=== PATIENT | female | born 1990 | race Two or more races ===

== ENCOUNTER 2023-10-04 15:17 | Outpatient (OUT) | payer OTHER, SELFPAY ==
[2023-10-04 16:04] LABS: HCG Quantitative <1 mIU/mL
== END 2023-10-04 15:18 | disposition home or self-care (01) ==
LOC: LAB 15:21
PROVIDERS: PCP Student in an Organized Health Care Education/Training Program; Visit Provider Obstetrics & Gynecology
DX: O20.9 Hemorrhage in early pregnancy, unspecified (principal)
CPT/HCPCS: 36415; 84702

== ENCOUNTER 2023-10-06 09:31 | Outpatient (OUT) | payer OTHER, SELFPAY ==
--- OUTSIDE RECORDS SUMMARY | 2023-10-06 09:53 | XMS_ITS | CCD ---
Author Organization [facility] ion Partnership [facility] Care Team Providers Care Caul Fat Puller Name Role Phone VENT, CHEVONE R. Unavailable Unavailable NEIL FRANKS Unavailable Unavailable ALEKSANDAR JEREZ Unavailable Unavailabl e VENT, CHEVONE RNayely Unavailable Unavailable NEIL FRANKS ANayely Unavailable Unavailable ALEKSANDAR JEREZ Unavailable Unavailabl HONEY Payne Unavailable Unavailable BOBBY DAVIS Unavailable Unavailable ALEKSANDAR JEREZ Unavailable Unavailable Cheryl Hartley Primary Care Physician [phone] MD Yasmine Mccormick Primary Care Provider DO Lanre Corrales Attending Provider [phone] DO Fazal Corrales Attending Provider [phone] MD Fernando Hamilton Referring Provider DO Boston Hedrick Attending Provider [phone] MD Cheryl Hartley Primary Care Provider Unavaila Cheryl Mckenzie Primary Care Unavailable Boston Hedrick Attending Unavailable Boston Herdick Admitting Unavailable Boston Hedrick Attending Unavailable Boston Hedrick Admitting Unavailable Cheryl Hartley Primary Care Unavailable Michael Rick Attending Unavailabl e Cheryl Hartley Referring Unavailable Cheryl Hartley Referring Unavailable Cheryl Hartley Attending Unavailable Cheryl Hartley Admitting Unavailable JEAN-PAUL TOSCANO Referring Unavailable DORCAS, PENRENETTA P Attending Unavailable TOSCANO, PENOLA P Referring Unavailable DORCAS, PENOLA P Attending Unavailable Allergies Allergy Classification Reported Allergen(s) Allergy Type Date of Onset Reaction(s) Facility (4 sources) Penicillin; Translations: [penicillin] Drug Allergy [facility] (3 sources) Penicillins; Translations: [Penicillins] Allergy to substance 10-08-2022 [facility] Medications Current Medications Medication Drug Class(es) Dates Sig (Normalized) Sig (Original) brompheniramine maleate 0.4 mg/ml / dextromethorphan hydrobromide 2 mg/ml / pseudoephedrine hydrochloride 6 mg/ml oral solution (2 sources) alpha-Adrenergic Agonist, Uncompetitive R-ybpasx-M-aspartat e Receptor Antagonist, Sigma-1 Agonist Start: 09-28-2020 take 10 mL by mouth four times daily Bromfed DM oral syrup 10 mL, Oral, QID for cold symptoms, 200 mL, Refill(s) 1, [id number], 160, cm, 09/28/20 10:23:00 EDT, Height/Length Dosing, 66, kg, 09/28/20 10:23:00 EDT, Weight Dosing Start Date: 09/28/20 Status: Ordered Brompheniramine / Pseudoephedrine (2 sources) alpha-Adrenergic Agonist Start: 05-13-2021 End: 05-18-2021 take 10 mL by mouth every six hours Bromfed DM oral syrup 10 mL, Oral, q6hr for cold symptoms for 5 day(s), 200 mL, Refill(s) 0, [id number], 160, cm, 05/13/21 17:08:00 EDT, Height/Length Dosing, 70.6, kg, 05/13/21 17:08:00 EDT, Weight Dosing Start Date: 05/13/21 Stop Date: 05/18/21 Status: Ordered Start: 09-28-2020 take 10 mL by mouth four times daily Bromfed DM oral syrup 10 mL, Oral, QID for cold symptoms, 200 mL, Refill(s) 1, [id number], 160, cm, 09/28/20 10:23:00 EDT, Height/Length Dosing, 66, kg, 09/28/20 10:23:00 EDT, Weight Dosing Start Date: 09/28/20 Status: Ordered cephalexin 500 mg oral capsule (1 source) Cephalosporin Antibacterial Start: 05-13-2021 End: 05-23-2021 take 1 capsule by mouth every twelve hours cephalexin 500 mg Cap 500 mg = 1 cap(s), Oral, q12hr, X 10 day(s), # 20 cap(s), Refills(s) 0, Pharmacy: [id number], 160, cm, 05/13/21 17:08:00 EDT, Height/Length Dosing, 70.6, kg, 05/13/21 17:08:00 EDT, Weight Dosing Start Date: 05/13/21 Stop Date: 05/23/21 Status: Ordered ibuprofen 200 mg oral tablet (2 sources) Nonsteroidal Anti-inflammatory Drug Start: 10-08-2022 take 400 mg by mouth once daily Ibuprofen Active 400 MG PO Daily October 08, 2022 12:00am naproxen 500 mg oral tablet (3 sources) Nonsteroidal Anti-inflammatory Drug Start: 01-16-2021 take 1 tablet by mouth twice daily Naprosyn 500 mg Tab 500 mg = 1 tab(s), Oral, BID, # 20 tab(s), Refills(s) 0, Pharmacy: [id number], 160, cm, 01/16/21 21:31:00 EST, Height/Length Dosing, 65, kg, 01/16/21 21:31:00 EST, Weight Dosing Start Date: 01/16/21 Status: Ordered ondansetron 4 mg disintegrating oral tablet (3 sources) Serotonin-3 Receptor Antagonist Start: 08-30-2019 take 1 tablet by mouth every six hours as needed for nausea ondansetron 4 mg Dis Tab 4 mg = 1 tab(s), Oral, q6hr, PRN Nausea/Vomiting, # 12 tab(s), Refills(s) 0, Pharmacy: [id number], 160, cm, 11/23/18 19:48:00 EDT, Height/Length Measured, 61.5, kg, 11/23/18 19:48:00 EDT, Weight Measured Start Date: 08/30/19 Status: Ordered Start: 08-30-2019 take 1 tablet by tello th every six hours as needed for nausea ondansetron 4 mg Dis Tab 4 mg = 1 tab(s), Oral, q6hr, PRN Nausea/Vomiting, # 12 tab(s), Refills(s) 0, Pharmacy: [id number], 160, cm, 11/23/18 19:48:00 EDT, Height/Length Measured, 61.5, kg, 11/23/18 19:48:00 EDT, Weight Measured Start Date: 08/30/19 Status: Ordered Pnv Cmb#95-Ferrous Fumarate-Fa () 28 mg iron- 800 mcg Tablet (2 sources) Start: 10-08-2022 take 1 tablet by mouth once daily Pnv Cmb#95-Ferrous Fumarate-Fa () 28 mg iron- 800 mcg Tablet Active 1 TAB PO Daily October 08, 2022 12:00am sertraline 50 mg oral tablet (5 sources) Serotonin Reuptake Inhibitor Start: 10-08-2022 take 1 tablet by mouth once daily Sertraline (Zoloft) 50 mg Tablet Active 50 MG PO Daily October 08, 2022 12:00am Start: 08-30-2019 take 2 tablets by mo uth once daily sertraline 25 mg Tab 50 mg, Oral, Daily, Refills(s) 0 Start Date: 08/30/19 Status: Ordered Start: 08-30-2019 take 1 mg by mouth once daily sertraline 25 mg Tab mg tab(s), Oral, Daily, Refills(s) 0 Start Date: 08/30/19 Status: Ordered traMADol hydrochloride 50 mg oral tablet (1 source) Opioid Agonist Start: 10-25-2022 take 50 mg by mouth every six hours Tramadol Active 50 MG PO Q6H 20 October 25, 2022 12:00am Ubrelvy (3 sources) Start: 11-01-2022 Ubrelvy Refills(s) 0 Start Date: 11/01/22 Status: Ordered Start: 10-08-2022 take 1 tablet by tello th once daily Ubrogepant (Ubrelvy) 100 mg Tablet Active 100 MG PO Daily October 08, 2022 12:00am may repeat dose in 2 hours, total 200 mg-for migraine headache Problems Active Problems Problem Classification Problem Date Documented Da te Episodic/Chronic Anxiety disorders (3 sources) Anxiety 08-30-2019 Chronic Other nutritional; endocrine; and metabolic disorders (1 source) Overweight in adulthood with body mass index of 25 or more but less than 30; Translations: [Body mass index (BMI) 27.0-27.9, adult] Onset: 05-13-2021 Episodic Other skin disorders (1 source) Mass of upper limb; Translations: [Localized swelling, mass and lump, unspecified upper limb] 10-25-2022 Episodic Other skin disorders (1 source) Localized swelling, mass and lump, right upper limb; Translations: [Localized swelling, mass and lump, right upper limb] Onset: 10-25-2022 Episodic Other upper respiratory infections (5 sources) Acute pharyngitis, unspecified; Translations: [Acute upper respiratory infection] Onset: 01-20-2017 Episodic Otitis media and related conditions (4 sources) Otitis media; Translations: [Otitis media, unspecified, bilateral] Onset: 05-13-2021 Episodic Unclassified (1 source) Localized swelling, mass and lump, left upper limb; Translations: [Localized swelling, mass and lump, left upper limb] Onset: 10-25-2022 Past or Other Problems Problem Classification Problem Date Documented Da te Episodic/Chronic Fever of unknown origin (1 source) Fever, unspecified; Translations: [Fever, unspecified] Onset: 01-20-2017 Episodic Other connective tissue disease (1 source) Myalgia; Translations: [Myalgia] Onset: 01-20-2017 Episodic Superficial injury; contusion (2 sources) Contusion of right front wall of thorax, initial encounter; Translations: [Contusion of right hip, initial encounter] Onset: 10-24-2016 Episodic Viral infection (1 source) Viral infection, unspecified; Translations: [Viral infection, unspecified] Onset: 01-20-2017 Episodic Results Test Name Value Interpretation Reference Range Facility US RENAL COMPLETEon 03-24-19 24 US RENAL COMPLETE FINDINGS: Right kidney measures 10.2 x 4.9 x 4.8 cm. Left kidney measures 9.5 x 5.0 x 4.8 cm. Both kidneys normal in size, shape, echogenicity, and color flow. No hydronephrosis, calculi, cortical thinning, cystic/solid lesions. Urinary bladder is smoothly marginated and well-defined. Bilateral ureteral jets identified on color flow. Prevoid urinary bladder volume 261 mL. Post void volume 17 mL. IMPRESSION: Impression: Negative renal ultrasound. Negative ultrasound urinary bladder. ELECTRONICALLY SIGNED BY: Ry Espana MD Normal Not Available [place] 11-12-2022 Consent [id number]. 00CD:127 Normal [facility] Consent for Treatmenton 10-15 Consent for Treatment [id number] [id number]:127 Normal [facility] Oncology Progress Noteon Oncology Progress Note Patient: ERIN [facility]ER [facility]: [id number] Age: 32 years Sex: Female : 1990 Associated Diagnoses: None Author: Merline KELLEY, Michael Campos Chief Complaint Heterozygous factor V Leiden mutation as. [facility] History of Present Illness Erin is a 32-year-old nice lady who has a history of migraine as well as anxiety and GERD was referred to our hematology clinic because of recent labs revealed positive heterozygous factor V Leiden mutation done on September 27, 2022. She had that test done because her father had factor V Leiden mutation and had thrombotic events as well. Patient herself did not have and never had thrombotic events or DVTs or PEs or coronary artery disease or OK or stroke. He has 2 sisters one of them has also heterozygous factor V Leiden mutation and the other 1 is fine. Her mom never been checked for factor V Leiden and she never had thrombotic events. Patient denied any miscarriages herself ever and she is and planning to get soon. Patient is not planning to be on control pills and does not use control pills. She is non-smoker she smoked only for half a year long time ago. And she borderline hyperlipidemia not currently on medications. Her LDL in August 2021 was 142 and the total cholesterol was 212. Review of 12 systems was obtained and was negative. Review of Systems Constitutional: Negative. Eye: Negative. Ear/Nose/Mouth/Throat: Negative. Respiratory: Negative. Cardiovascular: Negative. Gastrointestinal: Negative. Genitourinary: Negative. Hematology/Lymphatics: Negative. Endocrine: Negative. Immunologic: Negative. Musculoskeletal: Negative. Integumentary: Negative. Neurologic: Alert and oriented X4. Psychiatric: Negative. ROS reviewed as documented in chart Health Status Allergies: Allergic Reactions (Selected) Severity Not Documented Penicillin- Hives. Current medications: Home Medications (5) Active Bromfed DM oral syrup 10 mL, PRN, Oral, QID Naprosyn 500 mg Tab 500 mg = 1 tab(s), Oral, BID ondansetron 4 mg Dis Tab 4 mg = 1 tab(s), PRN, Oral, q6hr sertraline 25 mg Tab 50 mg, Oral, Daily Ubrelvy , No qualifying data available Problem list: All Problems Anxiety / SNOMED CT 34676846 / Confirmed Otitis media, serous / SNOMED CT 301034968 / Confirmed Viral upper respiratory tract infection with cough / SNOMED CT 043549143 / Confirmed Canceled: Constipation in female / SNOMED CT 45199229 Canceled: Neck pain without injury / SNOMED CT 220604045 Canceled: Sore throat / SNOMED CT 895692182 Histories Past Medical History: No active or resolved past medical history items have been selected or recorded. Family History: Hypertension Father Heart disease Father Procedure history: Removal - procedure (SNOMED CT 414474774) on 10/25/2022 at 32 Years. Comments: 11/01/2022 13:19 ELLIET - Stephanie Lee three fatty tumors removed Tonsillectomy and adenoidectomy (SNOMED CT 123692027). Social History Social & Psychosocial Habits Alcohol 08/12/2017 Risk Assessment: Denies Alcohol Use Comment: minerva - 08/12/2017 21:34 - Cristy Garcia RN 11/23/2018 Use: Current Frequency: 1-2 times per month Previous treatment: None Has alcohol use interfered with work or home life? No Do you ever drink more than intended? No Has anyone been hurt or at risk by your drinking? No Ready to change: No Substance Abuse 08/12/2017 Risk Assessment: Denies Substance Abuse 11/23/2018 Use: Current Comment: Minerva - 11/23/2018 20:15 - Kiana Pena RN Tobacco 08/12/2017 Risk Assessment: Denies Tobacco Use 10/24/2019 Tobacco Use: Never (less than 100 in l Smokeless tobacco use: Never 05/13/2021 Tobacco Use: Never (less than 100 in l Smokeless tobacco use: Never 05/16/2021 Tobacco Use: Never (less than 100 in l Smokeless tobacco use: Never Type: Cigarettes . Physical Examination Vital Signs 11/01/2022 13:00 EDT Temperature Oral 37.0 DegC Peripheral Pulse Rate 66 bpm Respiratory Rate 16 br/min Systolic Blood Pressure 116 mmHg Diastolic Blood Pressure 77 mmHg Blood Pressure Location Right arm Mean Arterial Pressure, Cuff 90 mmHg SpO2 99 % General: alert, no acute distress HENMT: Normocephalic, atraumatic. Neck: supple and no LAP or thyromegaly. Cardiovascular: regular rate and rhythm, No murmurs Respiratory: Lungs CTA, respirations non labored. Abdomen: Soft nontender nondistended without hepatosplenomegaly or masses clinically. Extremities: no deformity, no edema. Lymph system: Currently she has no lymphadenopathy in her cervical area subclavian area/axillary areas and inguinal areas bilaterally. Neurological: oriented x 4, LOC appropriate for age, CN II-XII intact, motor strength equal & normal bilaterally, sensation normal bilaterally, speech normal Skin: No rash. Psychiatric: Normal mood and interaction. Review / Manage (more content not included)... Normal [facility] Outside Labson 11-01-2022 Outside Labs [id number]. 00CD:127 Normal [facility] ONC - Otheron 10-27-2022 ONC - Other [id number]. 00CD:127 Normal [facility] Outside Progress Noteon 10-15 Outside Progress Note [id number]. 00CD:127 Normal [facility] HCG ( test) IA.viraj d Ql (U)Ordered By: Ziggy Solis on 10-25-2022 HCG ( test) Ql (U) Negative [facility] HCG,Urineon 10-25-2022 Beta HCG ( test) Ql (U) Negative Normal [facility] Comment on above: Result Comment: PERF ORMED BY: [place] [address] PATHOLOGIST [employer]ACTIVE [employer]ETING STRATEGIST ELIEZER JOHNSON M.D. Performed By: #### U HCG #### [address] [place] 10-25-2022 L -- ---- Specimen: [id number] Received: 10/25/22 Status: NEO John Num: [id number] Spec Type: Surgical Subm Dr: Boston Hedrick DO Tissues: A Lipoma (RT FOREARM) B Lipoma (LT FOREARM) C Lipoma (LT BICEP) Procedures: /Angelo Martínez/Torrey L3/3 ---- Age/ Patient Sex Location Account Attending Physician ---- Erin Piper 32/F [place] [id number] Boston Hedrick DO ---- SPEC NUM: [id number] RECD: 10/25/22 STATUS: NEO JOHN NUM: [id number] TEJINDER: 10/25/22- SUBM DR: Boston Hedrick DO ENTERED: 10/25/[address] [facility] DR: SPEC TYPE: Surgical DEPT: S ORDERED: HE/3, Gross/Micro L3/3 ORDERED: HE/3, Gross/Micro L3/3 Pathological Diagnosis A. Right forearm lesion, excision: - Mature adipose tissue consistent with lipoma B. Left forearm lesion, excision: - Mature adipose tissue consistent with lipoma C. Left bicep lesion, excision: - Mature adipose tissue consistent with lipoma Clinical Information Lipoma of right forearm, left forearm, left bicep Gross Description A. Received in formalin labeled with the patient's name, date of and right forearm lipoma is a 1.7 x 1.5 x 0.6 cm portion of yellow, lobular fat. Entirely submitted in one cassette labeled A1. ---- Specimen: [id number] Received: 10/25/22 Status: NEO Dora Num: [id number] Spec Type: Surgical Subm Dr: Boston Hedrick DO Tissues: A Lipoma (RT FOREARM) B Lipoma (LT FOREARM) C Lipoma (LT BICEP) Procedures: HE/3, Gross/Micro L3/3 ---- Patient: Erin Piper [id number] (Continued) ---- Specimen: [id number] Received: 10/25/22 (Continued) Gross Description (Continued) Signed (signature on file) Kwesi Woodward MD 10/28/22 1051 ---- Specimen: [id number] Received: 10/25/22 Status: NEO Marescarmencita Num: [id number] Spec Type: Surgical Subm Dr: Boston Hedrick DO Tissues: A Lipoma (RT FOREARM) B Lipoma (LT FOREARM) C Lipoma (LT BICEP) Procedures: HE/3, Gross/Micro L3/3 ---- Patient: Erin Piper [id number] (Continued) ---- Specimen: [id number] Received: 10/25/22 (Continued) Gross Description (Continued) B. Received in formalin labeled with the patient's name, date of and left forearm lipoma is a 3.2 x 2.8 x 1.1 cm irregular portion of yellow, lobular fat which is partially surfaced by a thin, translucent membrane. The cut surface is yellow-campos, lobular. Patient Access sections are submitted in one cassette labeled B1. C. Received in formalin labeled with the patient's name, date of and left bicep lipoma is a 3.4 x 3.0 x 1.0 cm portion of yellow, lobular fat with a homogeneous, yellow- campos, lobular cut surface. Patient Access sections are submitted in one cassette labeled C1. Microscopic Description A. One H E slide reviewed. The microscopic examination confirms the diagnosis. B. One H E slide reviewed. The microscopic examination confirms the diagnosis. C. One H E slide reviewed. The microscopic examination confirms the diagnosis. CPT Codes 51968l3 ---- ---- Specimen: [id number] Received: 10/25/22 Status: NEO Dora Num: [id number] Spec Type: Surgical Subm Dr: Boston Hedrick, Tissues: A Lipoma (RT FOREARM) B Lipoma (LT FOREARM) C Lipoma (LT BICEP) Procedures: HE/3, Gross/Micro L3/3 ---- Patient: Erin Piper [id number] (Continued) ---- Signed (signature on file) Kwesi Woodward MD 10/28/22 1051 [facility] US Extremity Non-Vascular Li zeinabd Lefton 08-13-2022 US Extremity Non-Vascular Limited Left Exam Date/Time: 08/11/2022 15:50 EDT Reason for Exam: R22.31 Report IMPRESSION: APPROXIMATE 2.8 CM SUPERFICIAL LIPOMA SUSPECTED AT THE PALPABLE AREA CONCERN OF THE PROXIMAL LEFT FOREARM. EXAM: US Extremity Non-Vascular Limited Left DATE: 08/11/2022 CLINICAL HISTORY: R22.31. COMPARISON: None available. TECHNIQUE: Ultrasound of the palpable area of concern of the occipital left forearm was performed, with a regional survey. FINDINGS: Just deep to the skin surface at the area of palpable concern is a grade approximately 2.8 x 1.5 x 0.9 cm ovoid well defined nonvascular mass isoechoic to the adjacent subcutaneous fat, consistent with a lipoma. There is no extension into the deep muscles bases or other findings of concern identified. Ordering Provider: Cheryl Hartley FINAL REPORT Dictated: 08/13/2022 1:33 pm Nixon Zuleta MD Signed (Electronic Signature): 08/13/2022 1:33 pm Signed by: Nixon Zuleta MD Transcribed by: DENEEN Technologist: ANGELIA Normal [facility] US Extremity Non-Vascular Li mited Righton 08-13-2022 US Extremity Non-Vascular Limited Right Exam Date/Time: 08/11/2022 15:51 EDT Reason for Exam: R22.32 Report IMPRESSION: QUESTIONABLE 4 MM LIPOMA AT THE PALPABLE AREA OF CONCERN OF THE POSTERIOR RIGHT PROXIMAL FOREARM. EXAM: US Extremity Non-Vascular Limited Right DATE: 08/11/2022 CLINICAL HISTORY: R22.32. COMPARISON: None available. TECHNIQUE: Directed ultrasound of the posterior proximal right forearm was performed with regional survey. FINDINGS: A very small questionable is noted just deep to the skin surface at the palpable area of concern, measuring approximately 4.0 x 3.8 x 2.1 mm. There are no worrisome features or other findings of concern identified. Ordering Provider: Cheryl Hartley FINAL REPORT Dictated: 08/13/2022 1:36 pm Nixon Zuleta MD Signed (Electronic Signature): 08/13/2022 1:36 pm Signed by: Nixon uZleta MD Transcribed by: DENEEN Technologist: ANGELIA Normal [facility] Consent for Treatmenton 07-16 Consent for Treatment [id number] 0CD:127 Normal [facility] Physician Orderon 08-05-2022 Physician Order [id number] 0CD:127 Normal [facility] Basophils Auto (Bld) [#/Vol] Ordered By: Lanre Corrales on 08-21-2021 Basophils (Bld) [#/Vol] 0.0 10*3/uL 0.0-0.2 [facility] Basophils/100 WBC Auto (Bld) Ordered By: Lanre Corrales on 08-21-2021 Basophils/100 WBC (Bld) 0.5 % . [facility] Blood hemoglobin measurement (mass/volume)Ordered By: Lanre Corrales on 08-21-2021 Hemoglobin (Bld) [Mass/Vol] 12.9 g/dL 11.8-15.4 [facility] Blood leukocytes automated c ount (number/volume)Ordered By: Lanre Corrales on 08-21-2021 WBC (Bld) [#/Vol] 6.0 10*3/uL 4.5-11.0 [facility] Body fluid albumin measureme nt (mass/volume)Ordered By: Lanre Corrales on 08-21-2021 Albumin (Body fld) [Mass/Vol] 4.2 g/dL 3.2-5.5 [facility] Cholesterol [Mass/volume] in Serum or PlasmaOrdered By: Lanre Corrales on 08-21-2021 Cholesterol [Mass/Vol] 212 mg/dL 140-200 [facility] Comment on above: Chol less than 200 m g/dl low risk Chol 201-239 mg/dl borderline risk Chol 240 mg/dl and greater high risk Cholesterol in LDL Calc [Mas s/Vol]Ordered By: Lanre Corrales on 08-21-2021 Cholesterol in LDL [Mass/Vol] 142 mg/dL 0-100 [facility] Comment on above: LDL ATP III CLASSIFI CATION LDL less than 100 mg/dL Optimal LDL 100-129 mg/dL Near or above optimal LDL 130-159 mg/dL Borderline high LDL 160-189 mg/dL High LDL greater than 189 mg/dL Very high Cholesterol in VLDL Calc [Ma ss/Vol]Ordered By: Lanre Corrales on 08-21-2021 Cholesterol in VLDL [Mass/Vol] 20 mg/dL [facility] Creatinine and Glomerular fi ltration rate.predicted panel (S/P/Bld)Ordered By: Lanre Corrales on 08-21-2021 Creatinine [Mass/Vol] 0.86 mg/dL 0.44-1.03 [facility] Eosinophils Auto (Bld) [#/Vo l]Ordered By: Lanre Corrales on 08-21-2021 Eosinophils (Bld) [#/Vol] 0.2 10*3/uL 0.0-0.45 [facility] Eosinophils/100 WBC Auto (Bl d)Ordered By: Lanre Corrales on 08-21-2021 Eosinophils/100 WBC (Bld) 3.1 % . [facility] Erythrocyte distribution wid th Auto (RBC) [Ratio]Ordered By: Lanre Corrales on 08-21-2021 Erythrocyte distribution width (RBC) [Ratio] 13.1 % 11.9-15.3 [facility] Estimated glomerular filtrat ion rate (GFR) non- AmericanOrdered By: Lanre Corrales on 08-21-2021 GFR/1.73 sq M.predicted among non-blacks MDRD (S/P/Bld) [Vol rate/Area] > 60 mL/Min [facility] Globulin Calc (S) [Mass/Vol] Ordered By: Lanre Corrales on 08-21-2021 Globulin (S) [Mass/Vol] 2.4 g/dL [facility] Hematocrit Auto (Bld) [Volum e fraction]Ordered By: Lanre Corrales on 08-21-2021 Hematocrit (Bld) [Volume fraction] 39.0 % 34.0-46.4 [facility] Laboratory - Hematology and Cell countsOrdered By: Lanre Corrales on 08-21-2021 Nucleated RBC/100 WBC (Bld) [Ratio] 0.0 % 0-0.5 [facility] Lymphocytes Auto (Bld) [#/Vo l]Ordered By: Lanre Corrales on 08-21-2021 Lymphocytes (Bld) [#/Vol] 1.7 10*3/uL 1.00-4.8 [facility] Lymphocytes/100 WBC Auto (Bl d)Ordered By: Lanre Corrales on 08-21-2021 Lymphocytes/100 WBC (Bld) 29.0 % . [facility] MCH Auto (RBC) [Entitic mass ]Ordered By: Lanre Corrales on 08-21-2021 MCH (RBC) [Entitic mass] 29.0 pg 24.7-34.3 [facility] MCHC Auto (RBC) [Mass/Vol]Or dered By: Lanre Corrales on 08-21-2021 MCHC (RBC) [Mass/Vol] 33.1 g/dL 32.0-35.0 [facility] MCV Auto (RBC) [Entitic vol] Ordered By: Lanre Corrales on 08-21-2021 MCV (RBC) [Entitic vol] 87.7 fL 80-100 [facility] Monocytes Auto (Bld) [#/Vol] Ordered By: Lanre Corrales on 08-21-2021 Monocytes (Bld) [#/Vol] 0.5 10*3/uL 0.0-0.8 [facility] Monocytes/100 WBC Auto (Bld) Ordered By: Lanre Corrales on 08-21-2021 Monocytes/100 WBC (Bld) 8.2 % . [facility] Neutrophils Auto (Bld) [#/Vo l]Ordered By: Lanre Corrales on 08-21-2021 Neutrophils (Bld) [#/Vol] 3.5 10*3/uL 1.8-7.7 [facility] Neutrophils/100 WBC Auto (Bl d)Ordered By: Lanre Corrales on 08-21-2021 Neutrophils/100 WBC (Bld) 59.2 % . [facility] No Panel InformationOrdered By: Lanre Corrales on 08-21-2021 Estimated GFR () > 60 mL/Min [facility] Comment on above: GFR estimated refere nce range: According to KDOQI guidelines, <60 ml/min/1.73m2 is sufficient to diagnose a patient with chronic kidney disease. Pharmacy Creatinine Clearance (Chem N/A [facility] Platelet mean volume Auto (B ld) [Entitic vol]Ordered By: Lanre Corrales on 08-21-2021 Platelet mean volume (Bld) [Entitic vol] 8.9 fL 6.3-10.7 [facility] Platelets Auto (Bld) [#/Vol] Ordered By: Lanre Corrales on 08-21-2021 Platelets (Bld) [#/Vol] 222 10*3/uL 150-450 [facility] Protein [Mass/volume] in Ser um or PlasmaOrdered By: Lanre Corrales on 08-21-2021 Protein [Mass/Vol] 6.6 g/dL 6.1-7.9 [facility] RBC Auto (Bld) [#/Vol]Ordere d By: Lanre Corrales on 08-21-2021 RBC (Bld) [#/Vol] 4.45 10*6/uL 3.60-5.00 [facility] Serum or plasma alanine bell otransferase measurement without P-5'-P (enzymatic activiOrdered By: Lanre Corrales on 08-21-2021 ALT No additional P-5'-P [Catalytic activity/Vol] 24 U/L 10-60 [facility] Serum or plasma albumin/glob ulin mass ratioOrdered By: Lanre Corrales on 08-21-2021 Albumin/Globulin [Mass ratio] 1.8 {ratio} [facility] Serum or plasma alkaline miguel ángel sphatase measurement (enzymatic activity/volume)Ordered By: Lanre Corrales on 08-21-2021 ALP [Catalytic activity/Vol] 50 U/L 32-92 [facility] Serum or plasma aspartate am inotransferase measurement (enzymatic activity/volume)Ordered By: Lanre Corrales on 08-21-2021 AST [Catalytic activity/Vol] 21 U/L 10-42 [facility] Serum or plasma calcium rubina urement (mass/volume)Ordered By: Lanre Corrales on 08-21-2021 Calcium [Mass/Vol] 9.6 mg/dL 8.2-10.2 [facility] Serum or plasma chloride jamie surement (moles/volume)Ordered By: Lanre Corrales on 08-21-2021 Chloride [Moles/Vol] 105 mmol/L 95-114 [facility] Serum or plasma glucose rubina urement (mass/volume)Ordered By: Lanre Corrales on 08-21-2021 Glucose [Mass/Vol] 90 mg/dL 70-100 [facility] Comment on above: ADA recommended refe rence range Random Glucose Reference Range is dependent on time and content of last meal. Glucose of more than 200 mg/dL in a nonstressed, ambulatory subject supports the diagnosis of Diabetes Mellitus. Serum or plasma high density lipoprotein (HDL) cholesterol measurementOrdered By: Lanre Corrales on 08-21-2021 Cholesterol in HDL [Mass/Vol] 50 mg/dL 35-85 [facility] Comment on above: HDL CHOL ATP-III CLA SSIFICATION Cardiovascular Risk HDL > or equal to 60 mg/dL LOW HDL < 40 mg/dL HIGH Serum or plasma potassium me asurement (moles/volume)Ordered By: Lanre Corrales on 08-21-2021 Potassium [Moles/Vol] 4.3 mmol/L 3.5-5.1 [facility] Serum or plasma sodium measu rement (moles/volume)Ordered By: Lanre Corrales on 08-21-2021 Sodium [Moles/Vol] 136 mmol/L 136-146 [facility] Serum or plasma total biliru bin measurement (mass/volume)Ordered By: Lanre Corrales on 08-21-2021 Bilirubin [Mass/Vol] 0.8 mg/dL 0.3-1.2 [facility] Serum or plasma total carbon dioxide measurement (moles/volume)Ordered By: Lanre Corrales on 08-21-2021 CO2 [Moles/Vol] 25.1 mmol/L 22.0-30.0 [facility] Serum or plasma total choles terol/high density lipoprotein (HDL) cholesterol mass ratOrdered By: Lanre Corrales on 08-21-2021 Cholesterol.total/Chol esterol in HDL [Mass ratio] 4.2 {ratio} <5.0 [facility] Serum or plasma urea nitroge n measurement (mass/volume)Ordered By: Lanre Corrales on 08-21-2021 Urea nitrogen [Mass/Vol] 15 mg/dL 9-23 [facility] TSH DL <= 0.005 mIU/L QnOrde red By: Lanre Crorales on 08-21-2021 TSH Qn 2.52 m[IU]/L 0.45-5.33 [facility] Thyroxine (T4) free [Mass/vo lume] in Serum or PlasmaOrdered By: Lanre Corrales on 08-21-2021 Free T4 [Mass/Vol] 0.88 ng/dL 0.61-1.12 [facility] Triglyceride [Mass/volume] i n Serum or PlasmaOrdered By: Lanre Corrales on 08-21-2021 Triglyceride [Mass/Vol] 102 mg/dL 35-149 [facility] Comment on above: TRIG ATP III CLASSIF ICATION TRIG less than 150 mg/dL Normal TRIG 150-199 mg/dL Borderline high TRIG 200-500 mg/dL High TRIG greater than 500 mg/dL Very high Standard traceable to the Center for Disease Conrtrol and Prevention (CDC) test method. RAPID FLUon 01-20-2017 Flu A Negative Normal NEGATIVE [facility] Comment on above: Performed By: #### F ANITA A/B MOLECUL ####[facility] [place] [address] Flu B Negative Normal NEGATIVE [facility] Comment on above: Result Comment: A po sitive result indicates the presence of Influenza A/B antigen. A negative result should be interpreted as presumptively negative for the presence of Influenza A/B antigen. Performed By: #### F ANITA A/B MOLECUL ####[facility] [place] [address] Internal Control ACCEPTABLE Normal [facility] Comment on above: Performed By: #### F ANITA A/B MOLECUL ####[place] [address] [place] [address] Age at Specimen Collection = Normal [facility] Comment on above: Performed By: #### F ANITA A/B MOLECUL ####[place] [address] [place] [address] ED Provider Noteon 7 HIM IP Note OR Chain Pegger Normal [facility] XR CHEST STANDARD TWO VWon 0 10-24-2016 XR CHEST STANDARD TWO VW FINAL REPORTEXAM: XR CHEST STANDARD TWO VWHISTORY: rib injury TECHNIQUE: Frontal and lateral views of the chest.PRIORS: None currently available.FINDINGS: Cardiac silhouette is within normal limits.There is no effusion. There is no pneumothorax. There is no consolidation. There are no suspicious osseous lesions. Dextroscoliosis. IMPRESSION: Impression: No acute cardiopulmonary findings.Electronicall y Signed By: LOCO BERNAL on 10/24/2016 11:33Interpreted by:EMANI Mcgeeigned by:Loco Bernal MD10/24/16Final result Normal [facility] Vital Signs Date Time Vital Sign Value Performing Clinician Facility 11-01-2022 13:00-0400 Blood Pressure Location [facility] 11-01-2022 13:00-0400 Body temperature 98.6 [degF] Mhd Al-Marrawi [facility] 11-01-2022 13:00-0400 Diastolic blood pressure 77 mm[Hg] [facility] Al[facility] 11-01-2022 13:00-0400 Heart rate 66 /min [facility] Al[facility]raw[facility] 11-01-2022 13:00-0400 Mean blood pressure 90 mm[Hg] [facility] Al[facility] 11-01-2022 13:00-0400 Respiratory rate 16 /min [facility]hd Al[facility] 11-01-2022 13:00-0400 SaO2% (BldA) [Mass fraction] 99 % d Al-Marrawi [facility] 11-01-2022 13:00-0400 Systolic blood pressure 116 mm[Hg] [facility] 10-25-2022 12:21-0400 Diastolic blood pressure 56 mm[Hg] MD Luna [facility] 10-25-2022 12:21-0400 Heart rate 74 /min [facility] 12:21-0400 Respiratory rate 16 /min MD Cheryl Hartley [facility] 10-25-2022 12:21-0400 SaO2% (BldA) [Mass fraction] 99 % MD Luna [facility] 10-25-2022 12:21-0400 Systolic blood pressure 103 mm[Hg] [facility]-25-2022 10:35-0400 Body height 157.48 cm MD Luna [facility] 10-25-2022 10:35-0400 Body mass index (BMI) [Ratio] 31 kg/m2 MD Cheryl Hartley [facility] 10-25-2022 10:35-0400 Body weight 76.9 kg MD Cheryl Hartley [facility] 10-25-2022 09:16-0400 Body temperature 98.4 [degF] MD Cheryl Hartley [facility] 05-13-2021 17:04-0400 Blood Pressure Location Caron Bryant [facility] 05-13-2021 17:04-0400 Body temperature 98.06 [degF] Caron Bryant [facility] 05-13-2021 17:04-0400 Diastolic blood pressure 74 mm[Hg] Caron Bryant [facility] 05-13-2021 17:04-0400 Heart rate 76 /min Caron Bryant [facility] 05-13-2021 17:04-0400 SaO2% (BldA) [Mass fraction] 98 % Caron Bryant [facility] 05-13-2021 17:04-0400 Systolic blood pressure 116 mm[Hg] Caron Bryant [facility] Encounters Encounter Date Encounter Type Care Provider Facility Start: 06-16-2023 End: 06-16-2023 ambulatory PENOLA P DORCAS Not Available Start: 03-24-2023 End: 03-25-2023 ambulatory PENOLA P DORCAS Not Available Start: 03-17-2023 End: 03-17-2023 ambulatory JEAN-PAUL P DORCAS Not Available Start: 03-11-2023 End: 03-11-2023 ambulatory JEAN-PAUL TOSCANO Not Available Start: 11-01-2022 End: 11-02-2022 ambulatory kelli Rick [place] Start: 11-01-2022 End: 11-01-2022 Patient encounter procedure Michael RichJennifer [facility] Start: 10-25-2022 End: 10-25-2022 ambulatory Cheryl Hartley Facility:[facility] Start: 10-25-2022 End: 10-25-2022 Admission to same day surgery center MD Cheryl Hartley [facility] [place] Start: 10-25-2022 End: 10-25-2022 ambulatory MD Cheryl Hartley [facility] Work Phone: Start: 10-08-2022 End: 10-08-2022 ambulatory Boston Hedrick Facility:[facility] Start: 10-08-2022 End: 10-08-2022 ambulatory [address] Cheryl Hartley [facility] Work Phone: Start: 10-08-2022 End: 10-08-2022 Patient encounter procedure MD Cheryl Hartley [facility] Work Phone: Start: 08-11-2022 End: 08-12-2022 ambulatory Cheryl Hartley [place] Start: 08-11-2022 End: 08-11-2022 Patient encounter procedure Cheryl Hartley [facility] Start: 2021 End: 2021 Departed Referred MD Yasmine Mccormick Work Phone: [facility] Start: 08-21-2021 End: 08-21-2021 Departed Referred MD Yasmine Mccormick Work Phone: [facility] [address] Start: 05-13-2021 End: 05-13-2021 Patient encounter procedure Caron Bryant [facility] Start: 01-24-2017 Ambulatory HONEY BECERRA Facility: [facility] Start: 01-20-2017 End: 01-21-2017 Ambulatory DALE MERINO Facility:[facility] Start: 10-24-2016 End: 10-24-2016 Emergency department patient visit [facility] Procedures Date Procedure Procedure Detail Performing Clinician Start: 10-25-2022 Excision MD Cheryl bean Start: 10-25-2022 Removal Michael loving Comment on above: three fatty tumors r emoved Start: 08-21-2021 Plain chest X-ray MD Hari Mccormick Work Phone: Start: 10-24-2016 Chest x-ray BOBBY SUSAN Tonsillectomy and adenoidectomy Caron Bryant Plan of Treatment Date Care Activity Detail Author Start: 10-25-2022 [facility] Start: 10-25-2022 [facility] Immunizations Immunization Date Immunization Notes Care Provider Sravanthi schwab 04-17-2020 COVID-19 mRNA, Comirnaty (Pfizer) MD [facility] 03-27-2020 COVID-19 mRNA, Comirnaty (Pfizer) MD Luna [facility] 11-23-2018 tetanus toxoid, reduced diphtheria toxoid, and acellular pertussis vaccine, adsorbed; Translations: [Adacel (Tdap)] Caron Bryant [facility] NEGATED: Highlighted row has not occurred!05-13-2021 influenza virus vaccine, unspecified formulation Caron Bryant [facility] Payers Date Payer Category Payer Private Health Insurance [id number] 2022 Self-pay [id number] 2022 Unknown 2022 Unknown [id number] 2017 Private Health Insurance [id number] 2016 Private Health Insurance [id number] 1991 Unknown [id number] 2.16.8 [id number] 1991 Unknown [id number] 2.16.8 [id number] 1991 Unknown [id number] 2.16.84 [id number] 1991 Unknown [id number] 2.16.84 [id number] 1991 Unknown [id number] 2.16.84 [id number] 1991 Unknown [id number] 2.16.84 [id number] Unknown [facility] [id number] Unknown [id number] 2.16.8 [id number] Unknown [id number] 2.16.8 [id number] Social History Date Type Detail Facility Start: 05-13-2021 End: 05-16-2021 Tobacco smoking status Never smoked tobacco (finding) [facility] Tobacco smoking status Never [facility] Sex Assigned At Female [facility] Start: 1990 Sex Assigned At Female [facility] Start: 10-08-2022 End: 10-25-2022 Tobacco smoking status NHIS Ex-smoker (finding) [facility] Goals Date Patient Goal Desired Activity /State Hospital Discharge instructions 10-27-2022 Note Date & Type Note Facility 10-27-2022 Hospital Discharg e instructions Follow Up Care 10/27/2022 14:12:34 With:Michael Rick Address: [facility] [place] [address]- [phone] Business (1) When: Unknown Comments:-Follow-up with us will be as needed or if she becomes or if she develops thrombotic events. [facility] Hospital Discharge instructions 05-13-2021 Note Date & Type Note Facility 05-13-2021 Hospital Discharg e instructions Patient Education 05/13/2021 17:24:59 Otitis Media, Adult, Ecfq-hq-Ggsz Otitis Media, Adult Otitis media means that the middle ear is red and swollen (inflamed) and full of fluid. The condition usually goes away on its own. Follow these instructions at home: Take nliz-owm-waknnvt and prescription medicines only as told by your doctor. If you were prescribed an antibiotic medicine, take it as told by your doctor. Do not stop taking the antibiotic even if you start to feel better. Keep all follow-up visits as told by your doctor. This is important. Contact a doctor if: You have bleeding from your nose. There is a lump on your neck. You are not getting better in 5 days. You feel worse instead of better. Get help right away if: You have pain that is not helped with medicine. You have swelling, redness, or pain around your ear. You get a stiff neck. You cannot move part of your face (paralyzed). You notice that the bone behind your ear hurts when you touch it. You get a very bad headache. Summary Otitis media means that the middle ear is red, swollen, and full of fluid. This condition usually goes away on its own. In some cases, treatment may be needed. If you were prescribed an antibiotic medicine, take it as told by your doctor. This information is not intended to replace advice given to you by your health care provider. Make sure you discuss any questions you have with your health care provider. Document Released: 07/19/2008 Document Revised: 01/13/2018 Document Reviewed: 02/21/2017 Elsevier Patient Education 2020 [employer]. 05/13/2021 17:24:54 BMI for Adults BMI for Adults Body mass index (BMI) is a number that is calculated from a person's weight and height. BMI may help to estimate how much of a person's weight is composed of fat. BMI can help identify those who may be at higher risk for certain medical problems. How is BMI used with adults? BMI is used as a screening tool to identify possible weight problems. It is used to check whether a person is obese, overweight, healthy weight, or underweight. How is BMI calculated? BMI measures your weight and compares it to your height. This can be done either in [place] or metric measurements. Note that charts are available to help you find your BMI quickly and easily without having to do these calculations yourself. To calculate your BMI in [place] measurements, your health care provider will: 1.Measure your weight in pounds (lb). 2.Multiply the number of pounds by 703. For example, for a person who weighs 180 lb, multiply that number by 703, which equals 126,540. 3.Measure your height in inches (in). Then multiply that number by itself to get a measurement called inches squared. For example, for a person who is 70 in tall, the inches squared measurement is 70 in x 70 in, which equals 4900 inches squared. 4.Divide the total from Step 2 (number of lb x 703) by the total from Step 3 (inches squared): 126,540 4900 = 25.8. This is your BMI. To calculate your BMI in metric measurements, your health care provider will: 1.Measure your weight in kilograms (kg). 2.Measure your height in meters (m). Then multiply that number by itself to get a measurement called meters squared. For example, for a person who is 1.75 m tall, the meters squared measurement is 1.75 m x 1.75 m, which is equal to 3.1 meters squared. 3.Divide the number of kilograms (your weight) by the meters squared number. In this example: 70 3.1 = 22.6. This is your BMI. How is BMI interpreted? To interpret your results, your health care provider will use BMI charts to identify whether you are underweight, normal weight, overweight, or obese. The following guidelines will be used: Underweight: BMI less than 18.5. Normal weight: BMI between 18.5 and 24.9. Overweight: BMI between 25 and 29.9. Obese: BMI of 30 and above. Please note: Weight includes both fat and muscle, so someone with a muscular build, such as an athlete, may have a BMI that is higher than 24.9. In cases like these, BMI is not an accurate measure of body fat. To determine if excess body fat is the cause of a BMI of 25 or higher, further assessments may need to be done by a health care provider. BMI is usually interpreted in the same way for men and women. Why is BMI a useful tool? BMI is useful in two ways: Identifying a weight problem that may be related to a medical condition, or that may increase the risk for medical problems. Promoting lifestyle and diet changes in order to reach a healthy weight. Summary Body mass index (BMI) is a number that is calculated from a person's weight and height. BMI may help to estimate how much of a person's weight is composed of fat. BMI can help identify those who may be at higher risk for certain medical problems. BMI can be measured using [place] measurements or metric measurements. To interpret your results, your health care provider will use BMI charts to identify whether you are underweight, normal weight, overweight, or obese. This information is not intended to replace advice given to you by your health care provider. Make sure you discuss any questions you have with your health care provider. Document Released: 10/12/2004 Document Revised: 01/13/2018 Document Reviewed: 12/14/2017 [employer] Patient Education 2020 [employer]. Follow Up Care 05/13/2021 16:49:43 With:Cheryl Hartley MD Address: [address] [place] [address]- When: Unknown [facility] Evaluation + Plan note Note Date & Type Note Facility Evaluation + Plan note No data available for this section [facility] Evaluation note Note Date & Type Note Facility Evaluation note [facility] Hospital Discharge instructions Note Date & Type Note Facility Hospital Discharge instructions No data available for this section [facility] Progress note Note Date & Type Note Facility Progress note No data available for this section [facility] Summary Purpose Family History No Family History Records Found Relationship Condition Age at Onset Recorded Date/T carmen Not Specified Hyperthyroidism Unknown father Endocarditis Unknown History of mitral valve replacement Unkno wn Hypercholesterolemia Unknown Hypertension Unknown Factor V Leiden mutation Unknown Deep vein thrombosis (DVT) Unknown Advance Directives No Advanced Directives Records Found Advance Directive Response Recorded Date/ Time Advance Directives No February 25, 2020 8:31am Chief Complaint and Reason for Visit Chief Complaint ches xray and labs Chief Complaint ches xray and labs pre employment Chief Complaint lipoma of right fore arm, left forearm, and left bi Chief Complaint lipoma of right fore arm, left forearm, and left bi lipoma of right forearm, left forearm, and left bi Additional Source Comments INFORMATION SOURCE (unrecogn ized section and content) DATE CREATED AUTHOR 08/09/2017 [facility] DATE CREATED AUTHOR AUTHOR'S ORGANIZ ATION 08/09/2017 [facility] DATE CREATED AUTHOR AUTHOR'S ORGANIZ ATION 08/10/2017 [facility] DATE CREATED AUTHOR AUTHOR'S ORGANIZ ATION 11/17/2022 [facility] DATE CREATED AUTHOR AUTHOR'S ORGANIZ ATION 11/19/2022 [facility] DATE CREATED AUTHOR AUTHOR'S ORGANIZ ATION 06/18/20[facility] [employer] Care Teams (unrecognized sec tion and content) Team Status: Inactive Member Role Status Dates Yasmine Mccormick MD Primary Care Provider Active Lanre Corrales DO [facility] Attending Provider Active Team Status: Active Member Role Status Dates Yasmine Mccormick MD Primary Care Provider Active Team Status: Inactive Member Role Status Dates Yasmine Mccormick MD Primary Care Provider Active Fazal Corrales DO [facility] Attending Provider Active Fernando Hamilton MD Referring Provider Active Team Status: Active Member Role Status Dates Cheryl Hartley MD Primary Care Provider Active Team Status: Inactive Member Role Status Dates Boston Hedrick DO Attending Provider Active Cheryl Hartley MD Primary Care Provider Active Goals (unrecognized section and content) Goals may be documented in a n alternate section FOR RECORDS PERTAINING TO PATIENTS WHO ARE OR HAVE BEEN ENROLLED IN A CHEMICAL DEPENDENCY/SUBSTANCEABUSE PROGRAM, SOME INFORMATION MAY BE OMITTED. This clinical summary was aggregated from multiple sources. Caution should be exercised in using it in the provision of clinical care. This summary normalizes information from multiple sources, and as a consequence, information in this document may materially change the coding, format and clinical context of patient data. In addition, data may be omitted in some cases. CLINICAL DECISIONS SHOULD BE BASED ON THE PRIMARY CLINICAL RECORDS. [facility] provides no warranty or guarantee of the accuracy or completeness of information in this document.
[2023-10-06 10:30] LABS: HCG Quantitative <1 mIU/mL
== END 2023-10-06 09:32 | disposition home or self-care (01) ==
LOC: LAB 09:32
PROVIDERS: PCP Student in an Organized Health Care Education/Training Program; Visit Provider Obstetrics & Gynecology
DX: O20.9 Hemorrhage in early pregnancy, unspecified (principal)
CPT/HCPCS: 36415; 84702